=== PATIENT | male | born 1955 | race Two or more races ===

== ENCOUNTER 2021-05-24 13:26 | Emergency (ER) | payer OTHER ==
[~2021-05-24] VITALS: Ht 177.8 cm; Wt 88.9 kg
[2021-05-24] MEDS ORDERED: ZESTRIL40 M1 (14:18)
[2021-05-24] MEDS ORDERED: HYDROCHLOROTHIA25 MG PO (14:19)
[2021-05-24] MEDS ORDERED: PRAVASTATIN SOD40 MG PO (14:20)
[2021-05-24] MEDS ORDERED: KETO10TA2 PO (19:11)
== END 2021-05-24 19:34 | disposition home or self-care (01) ==
LOC: ER 13:26
DX: M79.672 Pain in left foot (principal); R60.0 Localized edema

== ENCOUNTER 2021-06-03 08:04 | Outpatient (CLI) | payer OTHER ==
[~2021-06-03 08:04] MED LIST: HYDROCHLOROTHIA25 MG PO; KETO10TA2 PO; PRAVASTATIN SOD40 MG PO; ZESTRIL40 M1
== END 2021-06-03 08:06 | disposition home or self-care (01) ==
LOC: NUCLEAR 08:04
PROVIDERS: ATTEND General Practice
DX: I87.2 Venous insufficiency (chronic) (peripheral) (principal); R22.42 Localized swelling, mass and lump, left lower limb

== ENCOUNTER 2021-06-04 10:02 | Outpatient (CLI) | payer OTHER | END 2021-06-04 10:05 | disposition home or self-care (01) | LOC: NUCLEAR 10:02 | PROVIDERS: ATTEND General Practice | DX: R22.42 Localized swelling, mass and lump, left lower limb (principal); I73.9 Peripheral vascular disease, unspecified ==

== ENCOUNTER 2021-06-13 08:38 | Outpatient (CLI) | payer OTHER | END 2021-06-13 08:47 | disposition home or self-care (01) | LOC: MRI 08:38 | PROVIDERS: ATTEND Physical Medicine & Rehabilitation | DX: S76.011D Strain of muscle, fascia and tendon of right hip, subsequent encounter (principal); S73.191D Other sprain of right hip, subsequent encounter | CPT/HCPCS: 73721 ==

== ENCOUNTER 2022-05-22 09:40 | Outpatient (CLI) | payer OTHER | END 2022-05-22 09:43 | disposition home or self-care (01) | LOC: RAD 09:40 | PROVIDERS: ATTEND Internal Medicine | DX: M25.571 Pain in right ankle and joints of right foot (principal) ==